=== PATIENT | male | born 1990 | race Caucasian/White ===

== ENCOUNTER 2018-11-20 18:57 | Emergency (ER) | payer BC, OTHER ==
[~2018-11-20] VITALS: Ht 193 cm; Wt 136.7 kg
[2018-11-20 19:13] VITALS: BP 127/91; PULSE 110; RESP 19; Ht 193 cm; Wt 136.7 kg
[2018-11-20] MEDS ORDERED: ONDANSETRON (ODT) 4 MG TAB ODT STA (20:27)
[2018-11-20] MEDS ORDERED: HYDROCODONE/APAP (5/325) TAB PO ONE (20:30)
[2018-11-20] MEDS ORDERED: NAPR-985 PO (21:31)
--- NOTE | 2018-11-20 23:35 | ERD ---
ER Documentation Chief Complaint Chief Complaint RIGHT ANKLE; INJ TODAY- SLIPPED AND FELL (CHARMAINE SHAFFER PA-C) HPI 48-year-old male presenting with right ankle pain. Patient was up in the snow and slipped on ice earlier today. He is having severe swelling and pain to the medial aspect of his right foot. He is unable to bear weight. Denies any medication use. Denies medical problems. NKDA. Surgical history is append ectomy and deviated septum repair. Social history smokes 10 cigarettes a day. (CHARMAINE SHAFFER PA-C) Correction-patient is a 28-year-old male (LUKAS SIGALA MD) ROS All systems reviewed and are negative except as per history of present illness. (CHARMAINE SHAFFER PA-C) Medications Home Meds Active Scripts Naproxen* (Naprosyn*) 500 Mg Tablet, 500 MG PO BID PRN for PAIN AND/OR INFLAMMATION, #30 TAB Prov:CHARMAINE SHAFFER PA-C 11/20/18 Allergies Allergies: Coded Allergies: No Known Allergy (Unverified , 11/20/18) PMhx/Soc Medical and Surgical Hx: pt denies Medical Hx, pt denies Surgical Hx Hx Alcohol Use: No Hx Tobacco Use: No Smoking Status: Current every day smoker (CHARMAINE SHAFFER PA-C) FmHx Family History: No diabetes, No coronary disease, No other (CHARMAINE SHAFFER PA-C) Physical Exam Vitals Vital Signs Date Temp Pulse Resp B/P (MAP) Pulse Ox O2 O2 Flow FiO2 Time Delivery Rate 11/20/18 97.9 21:42 11/20/18 97.6 110 19 127/91 97 19:13 (103) (LUKAS SIGALA MD) Physical Exam GENERAL: The patient is well-appearing, well-nourished, in no acute distress HEENT: Atraumatic. Conjunctivae are pink. Pupils equal, round, and reactive to light. There is no scleral icterus. Tympanic membranes clear bilaterally. Oropharynx clear. No nystagmus or photophobia. NECK: C-spine is soft and supple. There is no meningismus. There is no cervical lymphadenopathy. No JVD. No bruits. No goiter. CHEST: Clear to auscultation bilaterally. There are no rales, wheezes or rhonchi. HEART: Regular rate and rhythm. No murmurs, clicks, rubs or gallops. No S3 or S4. EXTREMITIES: Healing noted to the medial aspect of the right ankle. Pain with flexion and extension. No obvious deformity. No pain to the foot. Compartments soft. NEUROLOGIC: Alert and oriented. Cranial nerves II through XII intact. Motor strength in all 4 extremities with 5 out of 5 strength. Sensation grossly intact. Normal speech and gait. Babinski negative. DTR 2+ throughout. SKIN: There is no apparent rash or petechiae. The skin is warm and dry. (CHARMAINE SHAFFER PA-C) Results 24 hrs Current Medications Medications Dose Sig/Veronique Start Time Status Last (Trade) Ordered Route PRN Stop Time Admin Dose Reason Admin 1 tab ONCE ONCE 11/20/18 DC 11/20/18 Acetaminophen PO 20:30 11/20/18 20:37 / 20:31 Hydrocodone Bitart (Roggen (5/325)) Ondansetron 4 mg ONCE STAT 11/20/18 DC 11/20/18 HCl (Zofran ODT 20:27 11/20/18 20:36 Odt) 20:28 (LUKAS SIGALA MD) Procedures/MDM DIAGNOSTIC IMAGING REPORT Patient: SMITH HECTOR : 1990 Age: 28 Sex: M MR #: [id number] DOS: 11/20/182026 Ordering MD: VIVIANE SHAFFER PA-C Location: [facility] Room/Bed: PROCEDURE: XR Ankle. CLINICAL INDICATION: Right ankle pain. TECHNIQUE: AP, oblique and lateral views of the right ankle were performed. COMPARISON: None available FINDINGS: The distal tibia and fibula are normal in appearance. The ankle mortise is maintained. The lateral process of the talus is intact. There is no evidence of fracture. The talus and calcaneus are normal in appearance. There is no plantar tendon enthesiophyte. There is no joint effusion. There is moderate soft tissue swelling over the medial ankle. IMPRESSION: 1. Moderate soft tissue swelling over the medial right ankle without evidence of underlying fracture. ER Course: Hussein wrap and crutches given in ED. Patient is neuro intact pre-and post Hussein wrap application. MDM: 28-year-old male presenting with sprain of ankle. I have low suspicion for acute fracture dislocation. I have low suspicion for neuro deficit. She is discharged stricter precautions and told to follow-up with primary care within 1-2 days for close evaluation. Patient is told symptoms change or worsen to return ER immediately. All questions answered at discharge (CHARMAINE SHAFFER PA-C) Departure Diagnosis: Primary Impression: Ankle sprain Condition: Stable Patient Instructions: Treating Ankle Sprains Referrals: KARLY PEREZ MD Additional Instructions: FOLLOW UP WITH YOUR PRIMARY CARE PHYSICIAN TOMORROW.Return to this facility if you are not improving as expected. CHARMAINE SHAFFER PA-C Nov 20, 2018 23:34 LUKAS SIGALA MD Nov 22, 2018 15:43
== END 2018-11-20 21:45 | disposition home or self-care (01) ==
LOC: FTE 18:57
DX: S93.401A Sprain of unspecified ligament of right ankle, initial encounter (principal); F17.210 Nicotine dependence, cigarettes, uncomplicated; W00.0XXA Fall on same level due to ice and snow, initial encounter; Y92.9 Unspecified place or not applicable
CPT/HCPCS: 99283